=== PATIENT | female | born 1950 ===

== ENCOUNTER → 2017-03-06 | Outpatient (CLI) | payer OTHER | LOC: BMCIMAGING 10:49 | PROVIDERS: ATTEND Internal Medicine | DX: Z12.39 Encounter for other screening for malignant neoplasm of breast (principal); N63.21 Unspecified lump in the left breast, upper outer quadrant | CPT/HCPCS: 76641; G0206 ==

== ENCOUNTER → 2017-04-17 | Outpatient (CLI) | payer OTHER | LOC: BMCIMAGING 12:45 | PROVIDERS: ATTEND Obstetrics & Gynecology | DX: D25.2 Subserosal leiomyoma of uterus (principal); D25.1 Intramural leiomyoma of uterus; R93.8 Abnormal findings on diagnostic imaging of other specified body structures ==

== ENCOUNTER 2017-10-29 08:53 | Day surgery (SDC) | payer OTHER ==
[2017-10-29] MEDS ORDERED: CEFAZOLIN 2 GM/DEXTROSE/100 ML BAG IV ONE (09:44)
[2017-10-29] MEDS ORDERED: BUPIVACAINE 0.25% 30 ML SDV ONE (10:27)
[2017-10-29] MEDS ORDERED: LIDOCAINE 1% 300 MG/30 ML SDV ONE (10:27)
[2017-10-29] MEDS ORDERED: PROPOFOL/EMULSION 500 MG/50 ML BOTTLE IV ONE (10:43)
[2017-10-29] MEDS ORDERED: fentaNYL 100 MCG/2 ML INJ ONE (10:44)
[2017-10-29] MEDS ORDERED: LIDOCAINE 2% 5 ML SDV ONE (11:08)
--- NOTE | 2017-11-08 13:01 | GOP ---
[f rep st] OPERATIVE REPORT DATE OF OPERATION: 10/29/2017 SURGEON: Zaid Roberts MD ANESTHESIA: General anesthesia. ANESTHESIOLOGIST: Bonifacio Mcdowell MD. PREOPERATIVE DIAGNOSIS: Epigastric hernia. POSTOPERATIVE DIAGNOSIS: Epigastric hernia. PROCEDURE PERFORMED: Epigastric hernia repair. FINDINGS: The patient had incarcerated preperitoneal fat and a supraumbilical epigastric hernia. ESTIMATED BLOOD LOSS: 20 cc. INDICATIONS: 67-year-old female with a history of periumbilical bulge. Risks and benefits of the pr ocedure were discussed with the patient, questions were answered, and she wished to proceed. DESCRIPTION OF PROCEDURE: The patient was placed in supine position. After induction of adequate ge neral anesthesia, the patient was prepped and draped in standard surgical fashion. 0.5% Marcaine was injected throughout the supraumbilical area for local anesthesia. A transverse incision was made wi th #15 blade, carried down to subcutaneous tissue with Bovie cautery and blunt dissection. Hernia sa c was identified and circumferentially dissected using blunt dissection cautery. The sac appeared to contain incarcerated preperitoneal fat. This was clamped, divided, and ligated with 3-0 Vicryl tie. It was then reduced without difficulty. The fascia was cleared off using blunt dissection cautery. No other lesions or defects were identified. A Marlex mesh was trimmed to fit and sutured down usi ng 0 Ethibond in a parachute fashion. Prior to tying this down, the defect itself was loosely closed with 0 Ethibond in interrupted fashion. Once the mesh was tied down, the area was thoroughly inspec kaylene. No other lesions were noted. The subcutaneous tissue was approximated in layers using 3-0 Vicr yl in interrupted fashion. Skin was closed with 4-0 Monocryl in a subcuticular stitch. Wound was st erilely dressed and the patient was taken to PACU in stable condition. COMPLICATIONS: None. DRAINS: None. /[id number]/MODL
== END 2017-10-29 13:31 | disposition home or self-care (01) ==
LOC: FSGY 08:53
PROVIDERS: ATTEND Surgery
PROC: 0WUF0JZ Supplement Abdominal Wall with Synthetic Substitute, Open Approach (ICD-10-PCS; principal; 2017-10-29 10:30)
DX: K43.9 Ventral hernia without obstruction or gangrene (principal); E03.9 Hypothyroidism, unspecified; E78.00 Pure hypercholesterolemia, unspecified; Z87.891 Personal history of nicotine dependence
CPT/HCPCS: C1781; J0690; J2704; J3010

== ENCOUNTER → 2018-03-25 | Outpatient (CLI) | payer OTHER | LOC: BMCIMAGING 12:47 | PROVIDERS: ATTEND Obstetrics & Gynecology | DX: Z12.31 Encounter for screening mammogram for malignant neoplasm of breast (principal); D25.9 Leiomyoma of uterus, unspecified ==